=== PATIENT | male | born 1980 ===

== ENCOUNTER 2018-12-27 12:57 | Emergency (ER) | payer SELFPAY ==
[2018-12-27 13:03] VITALS: BP 120/77; PULSE 73; RESP 18; TEMP 98.3; O2SAT 100
--- NOTE | 2018-12-27 13:42 | C.PDOC ---
History Of Present Illness 38 year old male presents to the emergency department with complaints of one week history of rash to his legs and abdomen, described as itchy. Patient denies fever and chills. He also denies any contributing factors, such as new soaps, detergents, fabrics. Time Seen by Provider: 12/27/18 13:14 Chief Complaint (Nursing): Abnormal Skin Integrity History Per: Patient History/Exam Limitations: no limitations Onset/Duration Of Symptoms: Other (one week) Location Of Injury: Right: Leg, Left: Leg, Anterior: Abdomen Quality Of Symptoms: Itching Past Medical History Reviewed: Historical Data, Nursing Documentation, Vital Signs Vital Signs: Last Vital Signs Temp 98.3 F 12/27/18 12:59 Pulse 73 12/27/18 12:59 Resp 18 12/27/18 12:59 BP 120/77 12/27/18 12:59 Pulse Ox 100 12/27/18 12:59 - Medical History PMH: No Chronic Diseases Surgical History: Appendectomy Family History: States: No Known Family Hx - Social History Hx Alcohol Use: No Hx Substance Use: No - Immunization History Hx Tetanus Toxoid Vaccination: No Hx Influenza Vaccination: No Hx Pneumococcal Vaccination: No Review Of Systems Except As Marked, All Systems Reviewed And Found Negative. Skin: Positive for: Rash Physical Exam - Physical Exam Appears: Non-toxic, No Acute Distress Skin: Warm, Dry, Rash (erythematous, macular rash with satellite lesions to the legs and abdomen) Head: Atraumatic, Normacephalic Eye(s): bilateral: Normal Inspection, PERRL, EOMI Nose: Normal Oral Mucosa: Moist Tongue: Normal Appearing, No Swelling Lips: Normal Appearing, No Swelling Throat: Normal, No Erythema Neck: Normal, Supple Cardiovascular: Rhythm Regular, No Murmur Respiratory: Normal Breath Sounds, No Rales, No Rhonchi, No Wheezing Gastrointestinal/Abdominal: Soft, No Tenderness Neurological/Psych: Oriented x3, Normal Speech, Normal Cognition ED Course And Treatment O2 Sat by Pulse Oximetry: 100 (RA) Pulse Ox Interpretation: Normal Medical Decision Making Medical Decision Making: Plan: Glucose POC Assessment: Fungal rash Disposition - Disposition Referrals: [facility] [Outside] Disposition: HOME/ ROUTINE Disposition Time: 13:39 Condition: STABLE Additional Instructions: follow up with your doctor within 2 days call to make an appointment take medication as prescribed return to ER if symptoms worsens or progress Prescriptions: Clotrimazole/Betamethasone [Lotrisone] 30 gm EXT BID #1 tube Instructions: Skin Rash (DC), Fungal Skin Rash (DC) Forms: Gen Discharge Inst Venezuelan, [facility] (Venezuelan) Print Language: INDIAN - Clinical Impression Clinical Impression: Fungal rash of torso - Scribe Statement The provider has reviewed the documentation as recorded by the Scribe (Braxton Holloway) Provider Attestation: All medical record entries made by the Imaniibe were at my direction and personally dictated by me. I have reviewed the chart and agree that the record accurately reflects my personal performance of the history, physical exam, medical decision making, and the department course for this patient. I have also personally directed, reviewed, and agree with the discharge instructions and disposition.
== END 2018-12-27 13:46 | disposition home or self-care (01) ==
LOC: C.ER 12:57
DX: B36.9 Superficial mycosis, unspecified (principal)